=== PATIENT | female | born 2000 | race Caucasian/White ===

== ENCOUNTER 2023-04-06 13:18 | Inpatient (IN) | payer MEDICAID ==
[~2023-04-06] VITALS: Ht 175.3 cm; Wt 44.0 kg
[2023-04-06] MEDS ORDERED: HYDRALAZINE 20MG/ML VIAL IV ONE (13:45)
[2023-04-06 14:36] LABS: EOSINOPHILS % 4.5 % (0.0-5.0); HEMATOCRIT. 37.9 % (36.0-48.0); HEMOGLOBIN. 12.8 g/dL (12.0-16.0); LYMPHOCYTES % 10.4 % (20.0-50.0); MEAN CORPUSCULAR HEMOGLOBIN 30.4 pg (28.0-32.0); MEAN CORPUSCULAR VOLUME 89.7 fL (81.0-99.0); MEAN PLATELET VOLUME 8.2 fl (7.4-10.4); MONOCYTES % 9.4 % (2.0-8.0); NEUTROPHILS % 74.7 % (40.0-76.0); PLATELET 132 x1000/uL (130-400); RED BLOOD CELL COUNT 4.22 mill/uL (4.2-5.4); RED CELL DISTRIBUTION WIDTH 16.5 % (11.6-14.6)
[2023-04-06 14:54] LABS: CHLORIDE 108 mEq/L (98-107)
[2023-04-06 14:55] LABS: HCG SCREEN NEGATIVE
[2023-04-06] MEDS ORDERED: ACETAMINOPHEN 325MG TABLET PO PRN (18:15)
[2023-04-06] MEDS ORDERED: ONDANSETRON HCL 4MG/2ML INJ IV PRN (18:15)
[2023-04-06] MEDS ORDERED: IPRATROPIUM/ALBUTEROL 0.5-3(2.5)MG/3ML NEB HHN PRN (18:15)
[2023-04-06] MEDS ORDERED: LORAZEPAM 0.5MG TABLET PO PRN (18:15)
[2023-04-06] MEDS ORDERED: LABETALOL HCL VIAL 20 MG/4 ML VIAL IV PRN (18:30)
[2023-04-06] MEDS ORDERED: HYDRALAZINE 20MG/ML VIAL IV PRN (18:30)
[2023-04-06] MEDS: CARVEDILOL 12.5MG TABLET PO SCH (18:56)
[2023-04-06] MEDS: ACETAMINOPHEN 325MG TABLET PO PRN (19:05)
[2023-04-06] MEDS ORDERED: NITROGLYCERIN 0.4MG TABLET SL SL PRN (19:15)
[2023-04-06] MEDS ORDERED: MINO2.5T2 MT (19:43)
[2023-04-06] MEDS ORDERED: CLON0.2T MT (19:43)
[2023-04-06] MEDS ORDERED: VALS80TA30 PO (19:43)
[2023-04-06] MEDS ORDERED: LOSA100T33 MT (19:43)
[2023-04-06] MEDS ORDERED: HYDR25TA MT (19:43)
[2023-04-06] MEDS ORDERED: COR25 MT (19:43)
[2023-04-06] MEDS ORDERED: NIFE90TA60 MT (19:43)
[2023-04-06 19:58] VITALS: BP 171/98; PULSE 86; RESP 19; TEMP 98
[2023-04-06 20:00] VITALS: BP 120/84; PULSE 89; RESP 18; TEMP 99
[2023-04-06] MEDS ORDERED: ENOXAPARIN 30MG/0.3ML SYR SUBCUT SCH (20:00)
[2023-04-06] MEDS: CLONIDINE 0.2MG TABLET PO SCH (21:29)
[2023-04-07] VITALS (8 sets, daily range): BP systolic 130–203; BP diastolic 76–140; PULSE 69–79; RESP 18–20; TEMP 97.1–98.7; O2SAT 97
[2023-04-07] MEDS: ACETAMINOPHEN 325MG TABLET PO PRN (00:38)
[2023-04-07 06:01] LABS: CHLORIDE 109 mEq/L (98-107)
[2023-04-07] MEDS: CLONIDINE 0.2MG TABLET PO SCH ×2 (06:03→14:45)
[2023-04-07 06:19] LABS: T4 FREE 0.96 ng/dL (0.76-1.46)
[2023-04-07] MEDS: CARVEDILOL 12.5MG TABLET PO SCH ×2 (08:59→19:04)
[2023-04-07] MEDS ORDERED: NIFEDIPINE XL 90MG TAB PO SCH (09:00)
[2023-04-07] MEDS ORDERED: CARVEDILOL 12.5MG TABLET PO SCH (09:00)
[2023-04-07] MEDS ORDERED: LOSARTAN POTASSIUM 100 MG TABLET PO SCH (09:00)
[2023-04-07] MEDS ORDERED: ISOSORBIDE MONONITRATE 30MG TABLET SR 24HR PO SCH (09:15)
[2023-04-07] MEDS ORDERED: MINOXIDIL 2.5MG TABLET PO SCH (09:15)
[2023-04-07] MEDS ORDERED: ISOS30TA91 MT (16:11)
[2023-04-08 09:07] LABS: ANTI-DNA DOUBLE STRANDED QUANT 2 IU/mL (0-9)
[2023-04-10 15:09] LABS: ACTIN (SMOOTH MUSCLE) ANTIBODY 8 Units (0-19)
[2023-04-11 09:11] LABS: ANGIOTENSION CONVERTING ENZYME 39 U/L (14-82)
[2023-04-12 17:10] LABS: ANA IFA Negative (.)
[2023-04-12 19:06] LABS: ANTI-MYELOPEROXIDASE AB < 0.2 units (0.0-0.9); ANTI-PROTEINASE 3 ABS < 0.2 units (0.0-0.9)
[2023-04-13 15:07] LABS: ATYPICAL P-ANCA <1:20 titer (Neg:<1:20); CYTOPLASMIC C-ANCA <1:20 titer (Neg:<1:20); PERINUCLEAR P-ANCA <1:20 titer (Neg:<1:20)
== END 2023-04-07 20:00 | disposition home or self-care (01) | DRG 199 ==
LOC: ER 13:18 → 7WST 17:09 → EDBEDREQTM 17:14 → EDBEDREQ 17:14
PROVIDERS: ADMIT Internal Medicine; ATTEND Internal Medicine
DX: I16.1 Hypertensive emergency (principal); J90 Pleural effusion, not elsewhere classified; N18.6 End stage renal disease; I27.21 Secondary pulmonary arterial hypertension; E46 Unspecified protein-calorie malnutrition; M32.9 Systemic lupus erythematosus, unspecified; M94.0 Chondrocostal junction syndrome [Tietze]; R79.89 Other specified abnormal findings of blood chemistry; I50.32 Chronic diastolic (congestive) heart failure; J84.10 Pulmonary fibrosis, unspecified; I12.0 Hypertensive chronic kidney disease with stage 5 chronic kidney disease or end stage renal disease; I07.1 Rheumatic tricuspid insufficiency; I35.1 Nonrheumatic aortic (valve) insufficiency; I73.00 Raynaud's syndrome without gangrene; Z86.74 Personal history of sudden cardiac arrest; Z99.2 Dependence on renal dialysis; Z79.899 Other long term (current) drug therapy; Z68.1 Body mass index [BMI] 19.9 or less, adult
CPT/HCPCS: 36415; 71045; 76604; 76770; 80053; 82164; 83520; 83735; 83880; 84439; 84443; 84484; 84703; 85025; 86225; 86235; 86256; 93005; 93306; 93970; 97161; 99291; J0360; J1650

== ENCOUNTER 2023-05-12 11:28 | Emergency (ER) | payer MEDICAID, OTHER ==
[~2023-05-12] VITALS: Ht 167.6 cm; Wt 48.0 kg
[~2023-05-12 11:28] MED LIST: CLON0.2T MT; COR25 MT; HYDR25TA MT; ISOS30TA91 MT; LOSA100T33 MT; MINO2.5T2 MT; NIFE90TA60 MT; VALS80TA30 PO
[2023-05-12 13:04] LABS: DIFFERENTIAL COMMENT 1; HEMATOCRIT. 36.8 % (36.0-48.0); HEMOGLOBIN. 12.7 g/dL (12.0-16.0); MEAN CORPUSCULAR HEMOGLOBIN 29.3 pg (28.0-32.0); MEAN CORPUSCULAR HGB CONC 34.5 g/dL (31.0-37.0); MEAN CORPUSCULAR VOLUME 84.8 fL (81.0-99.0); MEAN PLATELET VOLUME 8.3 fl (7.4-10.4); PLATELET 103 x1000/uL (130-400); RED BLOOD CELL COUNT 4.34 mill/uL (4.2-5.4); RED CELL DISTRIBUTION WIDTH 14.6 % (11.6-14.6); WHITE BLOOD COUNT 5.5 x1000/uL (4.5-11.0)
[2023-05-12 13:13] LABS: CHLORIDE 110 mEq/L (98-107); INDEX HEMOLYSI 1 (1-3); INDEX ICTERIC 1 (1-4); INDEX LIPEMIC 1 (1-3); POTASSIUM 5.6 mEq/L (3.5-5.1); SODIUM 138 mEq/L (136-145)
[2023-05-12 13:20] LABS: ALANINE AMINOTRANSFERASE 15 IU/L (13-61); ALBUMIN 3.9 g/dL (3.4-5.0); ASPARTATE AMINOTRANSFERASE 14 IU/L (15-37); BILIRUBIN TOTAL 0.5 mg/dL (0.1-1.0); CALCIUM 9.1 mg/dL (8.5-10.1); CARBON DIOXIDE 23 mEq/L (21-32); GLUCOSE 88 mg/dL (70-105); PROTEIN TOTAL 7.9 g/dL (6.0-8.3); UREA NITROGEN BLOOD 51 mg/dL (7-21)
[2023-05-12 13:28] LABS: CREATININE 6.8 mg/dL (0.6-1.3)
[2023-05-12 13:37] LABS: PLATELET ESTIMATE SLIGHTLY DECREASED
[2023-05-12] MEDS ORDERED: SODIUM BICARBONATE 8.4% 1 MEQ/ML 50ML SYR IV ONE (14:15)
[2023-05-12] MEDS ORDERED: SODIUM POLYSTYRENE SULFONATE 15 G/60 ML BOT PO ONE (14:15)
[2023-05-12] MEDS ORDERED: CLONIDINE 0.2MG TABLET PO ONE (14:15)
[2023-05-12] MEDS ORDERED: ALBUTEROL (0.083%) 2.5MG/3ML NEB HHN ONE (14:15)
[2023-05-12] MEDS ORDERED: CLONIDINE 0.1MG TABLET PO NR (14:45)
[2023-05-12] MEDS ORDERED: SODIUM BICARBONATE 8.4% 1 MEQ/ML 50ML SYR IV NR (14:45)
[2023-05-12 15:38] LABS: HCG SCREEN NEGATIVE; TROPONIN I HIGH SENSITIVITY 12 ng/L (<54)
[2023-05-12] MEDS ORDERED: ALBUTEROL (0.083%) 2.5MG/3ML NEB ONE (16:24)
[2023-05-12 16:25] VITALS: PULSE 80; RESP 20; O2SAT 99
[2023-05-12 16:44] VITALS: BP 162/108; PULSE 87; RESP 16; TEMP 98.3
[2023-05-12] MEDS ORDERED: CLON0.3T MT (17:00)
[2023-05-12] MEDS ORDERED: COR25 MT (17:00)
[2023-05-12] MEDS ORDERED: LOSA100T33 MT (17:00)
[2023-05-12] MEDS ORDERED: NIFE-32 MT (17:00)
[2023-05-12 18:20] LABS: CALCIUM 8.6 mg/dL (8.5-10.1); POTASSIUM 4.3 mEq/L (3.5-5.1)
[2023-05-12 18:34] LABS: CREATININE 7.3 mg/dL (0.6-1.3)
[2023-05-12 18:52] LABS: POTASSIUM 4.1 mEq/L (3.5-5.1)
[2023-05-12 19:05] LABS: CREATININE 7.3 mg/dL (0.6-1.3)
== END 2023-05-12 19:23 | disposition home or self-care (01) ==
LOC: ER 11:28 → CANBEDREQ 19:12 → ER 19:23
DX: I12.0 Hypertensive chronic kidney disease with stage 5 chronic kidney disease or end stage renal disease (principal); E87.5 Hyperkalemia; N18.6 End stage renal disease; Z87.01 Personal history of pneumonia (recurrent); Z79.899 Other long term (current) drug therapy
CPT/HCPCS: 80053; 80048; 84703; 85025; 84484; 36415; 93005; 94644; 99285; J3490; Z7610

== ENCOUNTER 2024-11-18 19:38 | Emergency (ER) | payer MEDICAID ==
[~2024-11-18] VITALS: Ht 167.6 cm; Wt 57.0 kg
[~2024-11-18 19:38] MED LIST changes: +CARV25TA47 MT; -CLON0.2T MT; +CLON0.3T MT; -COR25 MT; +ESCI5SOL2 PO; +FAMO20TA8 MT; +FAMO20TA8 PO; +HYDR100T11 PO; -HYDR25TA MT; -ISOS30TA91 MT; +KEPP500 PO; +LEVE500T19 PO; +NIFE-49 MT; -NIFE90TA60 MT; +TRAZ-251 PO; -VALS80TA30 PO
[2024-11-18 19:59] VITALS: O2SAT 99
[2024-11-18] MEDS: ONDANSETRON HCL 4MG/2ML INJ IM ONE (22:45)
[2024-11-18 22:59] LABS: BASOPHILS % 0.7 % (0.0-2.0); EOSINOPHILS % 0.2 % (0.0-5.0); HEMATOCRIT. 44.3 % (36.0-48.0); HEMOGLOBIN. 14.3 g/dL (12.0-16.0); LYMPHOCYTES % 12.1 % (20.0-50.0); MEAN CORPUSCULAR HEMOGLOBIN 29.3 pg (28.0-32.0); MEAN CORPUSCULAR HGB CONC 32.3 g/dL (31.0-37.0); MEAN CORPUSCULAR VOLUME 90.5 fL (81.0-99.0); MEAN PLATELET VOLUME 9.4 fl (7.4-10.4); PLATELET 210 x1000/uL (130-400); RED BLOOD CELL COUNT 4.89 mill/uL (4.2-5.4); RED CELL DISTRIBUTION WIDTH 14.2 % (11.6-14.6); WHITE BLOOD COUNT 14.8 x1000/uL (4.5-11.0)
[2024-11-18 23:08] LABS: HCG SCREEN NEGATIVE
[2024-11-18 23:10] LABS: CHLORIDE 100 mEq/L (98-107); POTASSIUM 3.8 mEq/L (3.5-5.1); SODIUM 137 mEq/L (136-145)
[2024-11-18 23:11] LABS: CALCIUM 10.4 mg/dL (8.7-10.4); CARBON DIOXIDE 22 mEq/L (21-32)
[2024-11-18 23:16] LABS: GLUCOSE 112 mg/dL (70-105); UREA NITROGEN BLOOD 40 mg/dL (9-23)
[2024-11-18 23:18] LABS: ALANINE AMINOTRANSFERASE 7 IU/L (10-49); ALBUMIN 4.8 g/dL (3.2-4.8); ASPARTATE AMINOTRANSFERASE 15 IU/L (<34); BILIRUBIN TOTAL 0.2 mg/dL (0.1-1.0); PROTEIN TOTAL 7.2 g/dL (6.0-8.3)
[2024-11-18 23:49] LABS: BILIRUBIN DIRECT < 0.1 mg/dL (<=3.0)
[2024-11-19] MEDS: CLONIDINE 0.1MG TABLET PO ONE (01:09)
[2024-11-19] MEDS: HYDRALAZINE HCL 100MG TABLET PO ONE (01:09)
[2024-11-19] MEDS: CARVEDILOL 12.5MG TABLET PO ONE (01:09)
[2024-11-19] MEDS: AMLODIPINE 10MG TABLET PO ONE (01:10)
[2024-11-19] MEDS ORDERED: ONDA-239 PO (02:07)
[2024-11-19 02:23] VITALS: BP 175/100; PULSE 100; RESP 20; TEMP 37.1; O2SAT 100
[2024-11-19] MEDS ORDERED: POLY510P31 PO (21:18)
[2024-11-19] MEDS ORDERED: NIFE90TA69 PO (21:18)
[2024-11-19] MEDS ORDERED: HYDR100T31 PO (21:18)
[2024-11-19] MEDS ORDERED: CHOL200059 PO (21:18)
[2024-11-19] MEDS ORDERED: LORA10TA7 PO (21:18)
[2024-11-19] MEDS ORDERED: ESCI-7 PO (21:18)
[2024-11-19] MEDS ORDERED: CLON0.3T PO (21:19)
[2024-11-19] MEDS ORDERED: SODI454P9 PO (21:19)
== END 2024-11-19 02:24 | disposition home or self-care (01) ==
LOC: ER 19:38
DX: A08.4 Viral intestinal infection, unspecified (principal); G40.909 Epilepsy, unspecified, not intractable, without status epilepticus; I12.0 Hypertensive chronic kidney disease with stage 5 chronic kidney disease or end stage renal disease; N18.6 End stage renal disease; Z79.899 Other long term (current) drug therapy; Z99.2 Dependence on renal dialysis
CPT/HCPCS: 99285; 71045; 80076; 80048; 84703; 83690; 85025; 36415; 96372; J2405